=== PATIENT | female | born 1945 | race Caucasian/White ===

== ENCOUNTER 2016-08-12 18:13 | Emergency (ER) | payer OTHER ==
[2016-08-12] MEDS ORDERED: NS 0.9% 1000 ML* 1,000 ML IV ONE (18:47)
[2016-08-12 18:59] LABS: Hematocrit 40 % (35-47); Hemoglobin 13.2 g/dl (12.0-16.0); Mean Corpuscular HGB Conc 33 g/dl (31-36); Mean Corpuscular Hemoglobin 29 pg (27-31); Mean Corpuscular Volume 87 fL (80-97); Mean Platelet Volume 9 um3 (7.4-10.4); Red Cell Distribution Width 13 % (10.5-15); White Blood Count 7.3 10^3/ul (3.5-10.8)
[2016-08-12 19:18] LABS: Albumin 3.8 g/dL (3.2-5.2); BUN/Creatinine Ratio 20.7 (8-20); Calcium 9.3 mg/dL (8.6-10.3); EGFR African American 88.1 (>60); EGFR Non-African American 68.5 (>60); Globulin 3.2 g/dL (2-4); Potassium 4.1 mmol/L (3.5-5.0); Total Bilirubin 0.2 mg/dL (0.2-1.0)
[2016-08-12] MEDS ORDERED: Iohexol 300* (CONTRAST) 10 ML SDV IV ONE (19:22)
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
[2016-08-12 20:32] VITALS: BP 173/80
== END 2016-08-12 20:29 | disposition home or self-care (01) ==
LOC: ED 18:13
DX: S20.219A Contusion of unspecified front wall of thorax, initial encounter (principal); R07.9 Chest pain, unspecified; R05 Cough; M79.642 Pain in left hand; V49.9XXA Car occupant (driver) (passenger) injured in unspecified traffic accident, initial encounter; Y93.9 Activity, unspecified; Y92.9 Unspecified place or not applicable
CPT/HCPCS: 36415; 71260; 74177; 80053; 83605; 85025; 93005; 99283; Q9967

== ENCOUNTER 2019-03-21 14:03 | Emergency (ER) | payer MEDICARE, OTHER ==
[2019-03-21] MEDS ORDERED: Oxymetazoline 0.05% NASAL SPR* 15 ML BTL BOTH NARES ONE (14:16)
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
[2019-03-21] MEDS ORDERED: Tranexamic Acid 1,000 MG/10 ML 1,000 MG in NS 0.9% 50 ML* 50 ML TOPICAL ONE (14:51)
[2019-03-21 15:59] VITALS: BP 132/71
== END 2019-03-21 15:57 | disposition home or self-care (01) ==
LOC: ED 14:03
DX: R04.0 Epistaxis (principal); E78.00 Pure hypercholesterolemia, unspecified; I10 Essential (primary) hypertension; Z86.73 Personal history of transient ischemic attack (TIA), and cerebral infarction without residual deficits; Z88.5 Allergy status to narcotic agent; Z79.01 Long term (current) use of anticoagulants; Z79.82 Long term (current) use of aspirin; Z79.899 Other long term (current) drug therapy
CPT/HCPCS: 99282; A9270-GY